=== PATIENT | female | born 1965 | race Caucasian/White ===

== ENCOUNTER → 2017-05-27 | Outpatient (CLI) | payer BC ==
--- NOTE | 2017-05-27 17:50 | MG ---
HISTORY: Six-month follow-up right breast nodules Study: Bilateral digital diagnostic mammography with CAD and right breast ultrasound. Comparison: June 16, 2012, June 04, 2016, and September 29, 2016 Findings: Mammogram: Cc and MLO views of both breasts were obtained. The breasts are heterogeneously dense with out suspicious interval change. There is no mass, architectural distortion, or suspicious clustered m icrocalcification. Benign calcifications are noted. There is no skin thickening or nipple retraction. No pathologic lymphadenopathy is identified. Ultrasound: Multiple grayscale and color Doppler images of the right breast were obtained. At 9 o'herbert ck approximately 2 cm from the nipple, there is a persistent slightly ill-defined hyperechoic nodule without posterior acoustical features or internal vascularity measuring 5 mm on the and prior. At 8 o 'clock approximately 4 cm from the nipple, there is a 7 mm horizontally oriented heterogeneous mixed echogenicity nodule without posterior acoustical features and with a central echogenic fatty fibrovas cular core noted most compatible with a benign intramammary lymph node compared to be stable in size and appearance when considering differences in scan acquisition. No suspicious cystic or solid nodule s are identified. IMPRESSION: No radiographic evidence of malignancy. BI-RADS 2. Benign findings. Yearly mammographic screening is recommended. * 0 (ZERO) - ASSESSMENT INCOMPLETE; ADDITIONAL IMAGING IS NEEDED. * 1/1 (ONE) - NEGATIVE. * 2/II (TWO) - BENIGN FINDINGS. * 3/III (THREE) - PROBABLY BENIGN FINDING; SHORT INTERVAL FOLLOW-UP SUGGESTED. * 4/IV (FOUR) - SUSPICIOUS ABNORMALITY; BIOPSY SHOULD BE CONSIDERED. * 5/V (FIVE) - HIGHLY SUSPICIOUS OF MALIGNANCY; BIOPSY SHOULD BE PERFORMED. * 6/ (SIX) - KNOWN MALIGNANCY. A NEGATIVE X-RAY REPORT SHOULD NOT DELAY BIOPSY IF A DOMINANT OR CLINICALLY SUSPICIOUS MASS IS PRESENT; 4 TO 8 PERCENT OF CANCERS ARE NOT IDENTIFIED BY X-RAY. A NEGA TIVE REPORT MAY REINFORCE THE CLINICAL IMPRESSION. ADENOSIS AND DENSE BREASTS MAY OBSCURE AN UNDERLY ING NEOPLASM. Reported By:
== END | disposition home or self-care (01) | DRG 601 ==
LOC: RAD 14:04
PROVIDERS: ATTEND Specialist
DX: N64.89 Other specified disorders of breast (principal); N63.10 Unspecified lump in the right breast, unspecified quadrant
CPT/HCPCS: 76642; 77066